=== PATIENT | male | born 1965 | race Caucasian/White ===

== ENCOUNTER 2019-02-10 23:50 | Emergency (ER) | payer OTHER, SELFPAY ==
[~2019-02-10] VITALS: Ht 177.8 cm; Wt 88.0 kg
[2019-02-11 00:25] VITALS: BP 159/101
== END 2019-02-11 01:05 | disposition home or self-care (01) ==
LOC: ER 23:50
DX: T40.1X1A Poisoning by heroin, accidental (unintentional), initial encounter (principal); Y92.89 Other specified places as the place of occurrence of the external cause
CPT/HCPCS: 99283